=== PATIENT | male | born 1965 | race African-American/Black ===

== ENCOUNTER 2017-04-15 14:19 | Inpatient (IN) | payer OTHER ==
[2017-04-15 16:34] VITALS: BMI 33.0
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
[2017-04-15] MEDS ORDERED: LOPERAMIDE HCL 2 MG CAPSULE PO PRN (19:41)
[2017-04-15] MEDS ORDERED: guaiFENesin/D-METHORPHAN HB 10 ML UNIT-DOSE CUPS PO PRN (19:41)
[2017-04-15] MEDS ORDERED: MENTHOL/PHENOL 1 EACH UD MM PRN (19:41)
[2017-04-15] MEDS ORDERED: IBUPROFEN 400 MG TABLET (FP) PO PRN (19:41)
[2017-04-15] MEDS ORDERED: P-EPHED 60MG/TRIPROLIDI 2.5MG TABLET PO PRN (19:41)
[2017-04-15] MEDS ORDERED: ACETAMINOPHEN 325 MG TABLET (FP) PO PRN (19:41)
[2017-04-15] MEDS ORDERED: MAGNESIUM HYDROX 2400MG/30ML ORAL SUSPENSION 30 ML CUP PO PRN (19:41)
[2017-04-15] MEDS ORDERED: MAGNESIUM CITRATE 300 ML BOTTLE PO PRN (19:41)
[2017-04-15] MEDS ORDERED: TUBERCULIN PPD 5 TU/0.1ML VIAL ID ONE (20:54)
[2017-04-15 20:57] LABS: URINE APPEARANCE CLEAR; URINE BILIRUBIN NEGATIVE (NEGATIVE); URINE BLOOD NEGATIVE (NEGATIVE); URINE COLOR YELLOW; URINE GLUCOSE (UA) NEGATIVE (NEGATIVE); URINE KETONE NEGATIVE (NEGATIVE); URINE LEUK ESTERASE NEGATIVE (NEGATIVE); URINE NITRITE NEGATIVE (NEGATIVE); URINE PROTEIN NEGATIVE (NEGATIVE); URINE UROBILINOGEN NEGATIVE mg/dL (0.2-1.0)
[2017-04-15] MEDS: THIAMINE HCL 100 MG TABLET (FP) PO SCH (21:56)
[2017-04-15] MEDS: GABAPENTIN 400 MG CAPSULE (FP) PO SCH (21:57)
[2017-04-15] MEDS: diphenhydrAMINE HCL 50 MG CAPSULE PO PRN (21:57)
[2017-04-15] MEDS: NICOTINE 21 MG/24 HOURS TOPICAL PATCH TD SCH (21:58)
[2017-04-16] MEDS: GABAPENTIN 400 MG CAPSULE (FP) PO SCH ×3 (06:17→21:27)
[2017-04-16] MEDS: LISINOPRIL 10 MG TABLET (FP) PO SCH (09:38)
[2017-04-16] MEDS: PRENATAL VITAMINS W/ FOLIC ACID TABLET (FP) PO SCH (09:38)
[2017-04-16] MEDS: amLODIPine BESYLATE 10 MG TABLET (FP) PO SCH (09:38)
[2017-04-16] MEDS: NICOTINE 21 MG/24 HOURS TOPICAL PATCH TD SCH (09:38)
[2017-04-16 10:09] LABS: MCH 27.8 pg (25.7-33.7); MCHC 32.1 g/dl (32.0-35.9); MEAN CELL VOLUME 86.6 fl (80-96); MEAN PLT VOLUME 9.3 fl (7.5-11.1); PLATELET COUNT 257 K/MM3 (134-434); RDW 15.8 % (11.9-15.9); WHITE BLOOD COUNT 5.7 K/mm3 (4.0-10.0)
[2017-04-16 11:25] LABS: ALBUMIN 3.2 g/dl (3.4-5.0); ALK PHOS 104 U/L (45-117); ANION GAP 11 (8-16); BILIRUBIN,TOTAL 0.6 mg/dL (0.2-1.0); CALCIUM 8.9 mg/dL (8.5-10.1); CO2 24 mmol/L (21-32); CREATININE 1.1 mg/dL (0.7-1.3); GLUCOSE,RANDOM 107 mg/dL (74-106); SGOT/AST 19 U/L (15-37); SGPT/ALT 47 U/L (12-78); TOT PROT 7.1 g/dl (6.4-8.2)
[2017-04-16 11:49] LABS: HIV 1 & 2 AB NEGATIVE; HIV 1 AGp24 NEGATIVE
[2017-04-16 12:41] LABS: SICKLE CELL SCREEN NEGATIVE (NEGATIVE)
--- NOTE | 2017-04-16 14:22 | EKG ---
Test Reason : Blood Pressure : / mmHG Vent. Rate : 074 BPM Atrial Rate : 074 BPM P-R Int : 136 ms QRS Dur : 092 ms QT Int : 364 ms P-R-T Axes : 047 063 -15 degrees QTc Int : 404 ms NORMAL SINUS RHYTHM T WAVE ABNORMALITY, CONSIDER LATERAL ISCHEMIA ABNORMAL ECG NO PREVIOUS ECGS AVAILABLE Confirmed by KATALINA LYNCH, MARAL ([id number]) on 04/16/2017 2:22:06 PM Referred By: Burt Cheema Confirmed By:MARAL DARDEN MD
--- NOTE | 2017-04-16 14:40 | PN ---
Psychiatric Progress Note Vital Signs: Vital Signs Period Temp Pulse Resp BP Sys/Martines Pulse Ox Last 24 Hr 97.5 F-97.5 F 73-80 18-20 135-151/87-97 Date of Session: 04/16/17 Current Medications: Active Medications Generic Name Dose Route Start Last Admin Trade Name Freq PRN Reason Stop Dose Admin Acetaminophen 650 mg 04/15/17 19:41 Tylenol - PO Q4H PRN PAIN Al Hydroxide/Mg Hydroxide 30 ml 04/15/17 19:41 Mylanta Oral Suspension - PO Q6H PRN DYSPEPSIA Amlodipine Besylate 10 mg 04/16/17 10:00 04/16/17 09:38 Norvasc - PO 10 mg DAILY MIKE Administration Diphenhydramine HCl 50 mg 04/15/17 19:41 04/15/17 21:57 Benadryl - PO 50 mg HSMR1 PRN Administration INSOMNIA Eucalyptus/Menthol/Phenol/Sorbitol 1 each 04/15/17 19:41 Cepastat Lozenge - MM Q4H PRN SORE THROAT Gabapentin 800 mg 04/15/17 22:00 04/16/17 06:17 Neurontin - PO 800 mg TID MIKE Administration Guaifenesin 10 ml 04/15/17 19:41 Robitussin Dm - PO Q6H PRN COUGH Hydroxyzine Pamoate 50 mg 04/15/17 19:41 Vistaril - PO Q4H PRN AGITATION Ibuprofen 400 mg 04/15/17 19:41 Motrin - PO Q6H PRN SEVERE PAIN Lisinopril 10 mg 04/16/17 10:00 04/16/17 09:38 Prinivil PO 10 mg DAILY MIKE Administration Loperamide HCl 4 mg 04/15/17 19:41 Imodium - PO Q6H PRN DIARRHEA Magnesium Citrate 300 ml 04/15/17 19:41 Citroma - PO Q48H PRN CONSTIPATION Magnesium Hydroxide 30 ml 04/15/17 19:41 Milk Of Magnesia - PO DAILY PRN CONSTIPATION Nicotine 21 mg 04/15/17 19:45 04/16/17 09:38 Nicoderm Patch - TD 21 mg DAILY MIKE Administration Nicotine Polacrilex 2 mg 04/15/17 19:41 Nicorette Gum - BUC Q2H PRN NICOTINE REPLACEMENT RX Multivit/Folic Acid/Iron 1 tab 04/16/17 10:00 04/16/17 09:38 Vitamins ([facility]) - PO 1 tab DAILY MIKE Administration Pseudoephedrine/Triprolidine 1 combo 04/15/17 19:41 Actifed - PO TID PRN NASAL CONGESTION Thiamine HCl 100 mg 04/15/17 22:00 04/15/17 21:56 Vitamin B1 - PO 100 mg HS MIKE Administration
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
[2017-04-16] MEDS: SERTRALINE HCL 50 MG TABLET (FP) PO SCH (15:52)
[2017-04-16] MEDS: MAG HYDROX/AL HYDROX/SIMETH 30 ML UNIT-DOSE CUP PO PRN (20:26)
[2017-04-16] MEDS: THIAMINE HCL 100 MG TABLET (FP) PO SCH (21:27)
[2017-04-16] MEDS: SUVOREXANT 10 MG TABLET PO PRN (21:30)
[2017-04-17] MEDS: GABAPENTIN 400 MG CAPSULE (FP) PO SCH ×3 (06:21→21:14)
[2017-04-17] MEDS: hydrOXYzine PAMOATE 50 MG CAPSULE (FP) PO PRN (06:21)
[2017-04-17] MEDS: amLODIPine BESYLATE 10 MG TABLET (FP) PO SCH (09:52)
[2017-04-17] MEDS: LISINOPRIL 10 MG TABLET (FP) PO SCH (09:53)
[2017-04-17] MEDS: NICOTINE 21 MG/24 HOURS TOPICAL PATCH TD SCH (09:53)
[2017-04-17] MEDS: SERTRALINE HCL 50 MG TABLET (FP) PO SCH (09:53)
[2017-04-17] MEDS: PRENATAL VITAMINS W/ FOLIC ACID TABLET (FP) PO SCH (09:53)
[2017-04-17] MEDS: THIAMINE HCL 100 MG TABLET (FP) PO SCH (21:14)
[2017-04-17] MEDS: MAG HYDROX/AL HYDROX/SIMETH 30 ML UNIT-DOSE CUP PO PRN (21:15)
[2017-04-17] MEDS: SUVOREXANT 10 MG TABLET PO PRN (21:16)
[2017-04-18] MEDS: GABAPENTIN 400 MG CAPSULE (FP) PO SCH ×3 (06:36→21:03)
[2017-04-18] MEDS: hydrOXYzine PAMOATE 50 MG CAPSULE (FP) PO PRN (06:36)
[2017-04-18] MEDS: PRENATAL VITAMINS W/ FOLIC ACID TABLET (FP) PO SCH (09:45)
[2017-04-18] MEDS: amLODIPine BESYLATE 10 MG TABLET (FP) PO SCH (09:45)
[2017-04-18] MEDS: LISINOPRIL 10 MG TABLET (FP) PO SCH (09:45)
[2017-04-18] MEDS: SERTRALINE HCL 50 MG TABLET (FP) PO SCH (09:45)
[2017-04-18] MEDS: NICOTINE 21 MG/24 HOURS TOPICAL PATCH TD SCH (09:45)
[2017-04-18] MEDS: MAG HYDROX/AL HYDROX/SIMETH 30 ML UNIT-DOSE CUP PO PRN (14:12)
[2017-04-18] MEDS: THIAMINE HCL 100 MG TABLET (FP) PO SCH (21:02)
[2017-04-18] MEDS: SUVOREXANT 10 MG TABLET PO PRN (21:03)
[2017-04-19] MEDS: GABAPENTIN 400 MG CAPSULE (FP) PO SCH ×3 (06:05→21:30)
[2017-04-19] MEDS: hydrOXYzine PAMOATE 50 MG CAPSULE (FP) PO PRN (06:05)
[2017-04-19] MEDS: NICOTINE 21 MG/24 HOURS TOPICAL PATCH TD SCH (09:44)
[2017-04-19] MEDS: SERTRALINE HCL 50 MG TABLET (FP) PO SCH (09:44)
[2017-04-19] MEDS: amLODIPine BESYLATE 10 MG TABLET (FP) PO SCH (09:45)
[2017-04-19] MEDS: LISINOPRIL 10 MG TABLET (FP) PO SCH (09:45)
[2017-04-19] MEDS: PRENATAL VITAMINS W/ FOLIC ACID TABLET (FP) PO SCH (09:45)
[2017-04-19] MEDS: THIAMINE HCL 100 MG TABLET (FP) PO SCH (21:30)
[2017-04-19] MEDS: SUVOREXANT 10 MG TABLET PO PRN (21:31)
[2017-04-20] MEDS: GABAPENTIN 400 MG CAPSULE (FP) PO SCH ×3 (06:07→21:30)
[2017-04-20] MEDS: hydrOXYzine PAMOATE 50 MG CAPSULE (FP) PO PRN (06:08)
[2017-04-20] MEDS: PRENATAL VITAMINS W/ FOLIC ACID TABLET (FP) PO SCH (09:55)
[2017-04-20] MEDS: MAG HYDROX/AL HYDROX/SIMETH 30 ML UNIT-DOSE CUP PO PRN (09:55)
[2017-04-20] MEDS: SERTRALINE HCL 50 MG TABLET (FP) PO SCH (09:55)
[2017-04-20] MEDS: NICOTINE 21 MG/24 HOURS TOPICAL PATCH TD SCH (09:55)
[2017-04-20] MEDS: LISINOPRIL 10 MG TABLET (FP) PO SCH (09:55)
[2017-04-20] MEDS: amLODIPine BESYLATE 10 MG TABLET (FP) PO SCH (09:55)
[2017-04-20] MEDS: THIAMINE HCL 100 MG TABLET (FP) PO SCH (21:30)
[2017-04-20] MEDS: SUVOREXANT 10 MG TABLET PO PRN (21:31)
[2017-04-20] MEDS: diphenhydrAMINE HCL 50 MG CAPSULE PO PRN (21:31)
[2017-04-21] MEDS: GABAPENTIN 400 MG CAPSULE (FP) PO SCH ×3 (06:09→22:15)
[2017-04-21] MEDS: hydrOXYzine PAMOATE 50 MG CAPSULE (FP) PO PRN (06:10)
[2017-04-21] MEDS: amLODIPine BESYLATE 10 MG TABLET (FP) PO SCH (09:49)
[2017-04-21] MEDS: NICOTINE 21 MG/24 HOURS TOPICAL PATCH TD SCH (09:49)
[2017-04-21] MEDS: PRENATAL VITAMINS W/ FOLIC ACID TABLET (FP) PO SCH (09:49)
[2017-04-21] MEDS: NICOTINE POLACRILEX 2 MG GUM BUC PRN (09:50)
[2017-04-21] MEDS: SERTRALINE HCL 50 MG TABLET (FP) PO SCH (09:50)
[2017-04-21] MEDS: LISINOPRIL 10 MG TABLET (FP) PO SCH (09:50)
[2017-04-21] MEDS: MAG HYDROX/AL HYDROX/SIMETH 30 ML UNIT-DOSE CUP PO PRN (16:45)
[2017-04-21] MEDS: THIAMINE HCL 100 MG TABLET (FP) PO SCH (22:15)
[2017-04-21] MEDS: diphenhydrAMINE HCL 50 MG CAPSULE PO PRN (22:15)
[2017-04-21] MEDS: SUVOREXANT 10 MG TABLET PO PRN (22:17)
[2017-04-22] MEDS: hydrOXYzine PAMOATE 50 MG CAPSULE (FP) PO PRN (06:03)
[2017-04-22] MEDS: GABAPENTIN 400 MG CAPSULE (FP) PO SCH ×3 (06:03→21:32)
[2017-04-22] MEDS: PRENATAL VITAMINS W/ FOLIC ACID TABLET (FP) PO SCH (09:55)
[2017-04-22] MEDS: amLODIPine BESYLATE 10 MG TABLET (FP) PO SCH (09:55)
[2017-04-22] MEDS: SERTRALINE HCL 50 MG TABLET (FP) PO SCH (09:55)
[2017-04-22] MEDS: NICOTINE 21 MG/24 HOURS TOPICAL PATCH TD SCH (09:56)
[2017-04-22] MEDS: LISINOPRIL 10 MG TABLET (FP) PO SCH (09:56)
[2017-04-22] MEDS: MAG HYDROX/AL HYDROX/SIMETH 30 ML UNIT-DOSE CUP PO PRN (19:54)
[2017-04-22] MEDS: THIAMINE HCL 100 MG TABLET (FP) PO SCH (21:33)
[2017-04-22] MEDS: diphenhydrAMINE HCL 50 MG CAPSULE PO PRN (21:33)
[2017-04-23] MEDS: GABAPENTIN 400 MG CAPSULE (FP) PO SCH ×3 (06:07→21:26)
[2017-04-23] MEDS: hydrOXYzine PAMOATE 50 MG CAPSULE (FP) PO PRN (06:07)
[2017-04-23] MEDS: PRENATAL VITAMINS W/ FOLIC ACID TABLET (FP) PO SCH (09:53)
[2017-04-23] MEDS: SERTRALINE HCL 50 MG TABLET (FP) PO SCH (09:54)
[2017-04-23] MEDS: NICOTINE 21 MG/24 HOURS TOPICAL PATCH TD SCH (09:54)
[2017-04-23] MEDS: amLODIPine BESYLATE 10 MG TABLET (FP) PO SCH (09:54)
[2017-04-23] MEDS: LISINOPRIL 10 MG TABLET (FP) PO SCH (09:54)
[2017-04-23] MEDS: MAG HYDROX/AL HYDROX/SIMETH 30 ML UNIT-DOSE CUP PO PRN (20:02)
[2017-04-23] MEDS: NICOTINE POLACRILEX 2 MG GUM BUC PRN (20:03)
[2017-04-23] MEDS: THIAMINE HCL 100 MG TABLET (FP) PO SCH (21:26)
[2017-04-23] MEDS: diphenhydrAMINE HCL 50 MG CAPSULE PO PRN (21:28)
[2017-04-23] MEDS: SUVOREXANT 10 MG TABLET PO PRN (21:28)
[2017-04-24] MEDS: MAG HYDROX/AL HYDROX/SIMETH 30 ML UNIT-DOSE CUP PO PRN (02:54)
[2017-04-24] MEDS: GABAPENTIN 400 MG CAPSULE (FP) PO SCH ×3 (06:11→21:21)
[2017-04-24] MEDS: hydrOXYzine PAMOATE 50 MG CAPSULE (FP) PO PRN (06:11)
[2017-04-24] MEDS: SERTRALINE HCL 50 MG TABLET (FP) PO SCH (09:46)
[2017-04-24] MEDS: NICOTINE 21 MG/24 HOURS TOPICAL PATCH TD SCH (09:46)
[2017-04-24] MEDS: LISINOPRIL 10 MG TABLET (FP) PO SCH (09:46)
[2017-04-24] MEDS: amLODIPine BESYLATE 10 MG TABLET (FP) PO SCH (09:46)
[2017-04-24] MEDS: PRENATAL VITAMINS W/ FOLIC ACID TABLET (FP) PO SCH (09:46)
[2017-04-24] MEDS: NICOTINE POLACRILEX 2 MG GUM BUC PRN ×2 (09:48→13:30)
[2017-04-24] MEDS: SUVOREXANT 10 MG TABLET PO PRN (21:21)
[2017-04-24] MEDS: diphenhydrAMINE HCL 50 MG CAPSULE PO PRN (21:21)
[2017-04-24] MEDS: THIAMINE HCL 100 MG TABLET (FP) PO SCH (21:21)
[2017-04-25] MEDS: hydrOXYzine PAMOATE 50 MG CAPSULE (FP) PO PRN (06:18)
[2017-04-25] MEDS: GABAPENTIN 400 MG CAPSULE (FP) PO SCH ×3 (06:18→21:40)
[2017-04-25] MEDS: amLODIPine BESYLATE 10 MG TABLET (FP) PO SCH (09:36)
[2017-04-25] MEDS: NICOTINE 21 MG/24 HOURS TOPICAL PATCH TD SCH (09:36)
[2017-04-25] MEDS: PRENATAL VITAMINS W/ FOLIC ACID TABLET (FP) PO SCH (09:36)
[2017-04-25] MEDS: LISINOPRIL 10 MG TABLET (FP) PO SCH (09:36)
[2017-04-25] MEDS: SERTRALINE HCL 50 MG TABLET (FP) PO SCH (09:36)
[2017-04-25] MEDS: NICOTINE POLACRILEX 2 MG GUM BUC PRN ×2 (09:37→14:21)
[2017-04-25] MEDS: THIAMINE HCL 100 MG TABLET (FP) PO SCH (21:40)
[2017-04-25] MEDS: diphenhydrAMINE HCL 50 MG CAPSULE PO PRN (21:40)
[2017-04-25] MEDS: SUVOREXANT 10 MG TABLET PO PRN (21:41)
[2017-04-26] MEDS: GABAPENTIN 400 MG CAPSULE (FP) PO SCH ×3 (06:16→21:36)
[2017-04-26] MEDS: hydrOXYzine PAMOATE 50 MG CAPSULE (FP) PO PRN (06:16)
[2017-04-26] MEDS: NICOTINE POLACRILEX 2 MG GUM BUC PRN ×2 (08:53→14:42)
[2017-04-26] MEDS: NICOTINE 21 MG/24 HOURS TOPICAL PATCH TD SCH (09:48)
[2017-04-26] MEDS: PRENATAL VITAMINS W/ FOLIC ACID TABLET (FP) PO SCH (09:48)
[2017-04-26] MEDS: amLODIPine BESYLATE 10 MG TABLET (FP) PO SCH (09:48)
[2017-04-26] MEDS: SERTRALINE HCL 50 MG TABLET (FP) PO SCH (09:48)
[2017-04-26] MEDS: LISINOPRIL 10 MG TABLET (FP) PO SCH (09:48)
[2017-04-26] MEDS: SUVOREXANT 10 MG TABLET PO PRN (21:36)
[2017-04-26] MEDS: diphenhydrAMINE HCL 50 MG CAPSULE PO PRN (21:36)
[2017-04-26] MEDS: THIAMINE HCL 100 MG TABLET (FP) PO SCH (21:36)
[2017-04-27] MEDS: GABAPENTIN 400 MG CAPSULE (FP) PO SCH ×3 (06:13→21:48)
[2017-04-27] MEDS: hydrOXYzine PAMOATE 50 MG CAPSULE (FP) PO PRN (06:13)
[2017-04-27] MEDS: LISINOPRIL 10 MG TABLET (FP) PO SCH (09:43)
[2017-04-27] MEDS: PRENATAL VITAMINS W/ FOLIC ACID TABLET (FP) PO SCH (09:43)
[2017-04-27] MEDS: NICOTINE POLACRILEX 2 MG GUM BUC PRN ×2 (09:43→14:40)
[2017-04-27] MEDS: SERTRALINE HCL 50 MG TABLET (FP) PO SCH (09:43)
[2017-04-27] MEDS: NICOTINE 21 MG/24 HOURS TOPICAL PATCH TD SCH (09:43)
[2017-04-27] MEDS: amLODIPine BESYLATE 10 MG TABLET (FP) PO SCH (09:43)
[2017-04-27] MEDS: THIAMINE HCL 100 MG TABLET (FP) PO SCH (21:47)
[2017-04-27] MEDS: SUVOREXANT 10 MG TABLET PO PRN (21:48)
[2017-04-27] MEDS: diphenhydrAMINE HCL 50 MG CAPSULE PO PRN (21:48)
[2017-04-28] MEDS: GABAPENTIN 400 MG CAPSULE (FP) PO SCH ×3 (06:24→21:46)
[2017-04-28] MEDS: hydrOXYzine PAMOATE 50 MG CAPSULE (FP) PO PRN (06:24)
[2017-04-28] MEDS: SERTRALINE HCL 50 MG TABLET (FP) PO SCH (10:04)
[2017-04-28] MEDS: LISINOPRIL 10 MG TABLET (FP) PO SCH (10:04)
[2017-04-28] MEDS: amLODIPine BESYLATE 10 MG TABLET (FP) PO SCH (10:04)
[2017-04-28] MEDS: PRENATAL VITAMINS W/ FOLIC ACID TABLET (FP) PO SCH (10:04)
[2017-04-28] MEDS: NICOTINE 21 MG/24 HOURS TOPICAL PATCH TD SCH (10:04)
[2017-04-28] MEDS: NICOTINE POLACRILEX 2 MG GUM BUC PRN ×2 (10:06→14:27)
[2017-04-28] MEDS: THIAMINE HCL 100 MG TABLET (FP) PO SCH (21:45)
[2017-04-28] MEDS: diphenhydrAMINE HCL 50 MG CAPSULE PO PRN (21:45)
[2017-04-28] MEDS: SUVOREXANT 10 MG TABLET PO PRN (21:46)
[2017-04-29] MEDS: GABAPENTIN 400 MG CAPSULE (FP) PO SCH (06:20)
[2017-04-29 07:01] VITALS: BP 137/93; PULSE 73; TEMP 98.8
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
[2017-04-29] MEDS: LISINOPRIL 10 MG TABLET (FP) PO SCH (09:36)
[2017-04-29] MEDS: PRENATAL VITAMINS W/ FOLIC ACID TABLET (FP) PO SCH (09:36)
[2017-04-29] MEDS: SERTRALINE HCL 50 MG TABLET (FP) PO SCH (09:36)
[2017-04-29] MEDS: amLODIPine BESYLATE 10 MG TABLET (FP) PO SCH (09:36)
[2017-04-29] MEDS: NICOTINE 21 MG/24 HOURS TOPICAL PATCH TD SCH (09:36)
[2017-04-29] MEDS: NICOTINE POLACRILEX 2 MG GUM BUC PRN (09:39)
== END 2017-04-29 10:00 | disposition home or self-care (01) | DRG 772 ==
LOC: YASAS 14:19 → Y3W 18:02
PROVIDERS: ADMIT Psychiatry & Neurology Psychiatry; ATTEND Psychiatry & Neurology Psychiatry
PROC: HZ42ZZZ Group Counseling for Substance Abuse Treatment, Cognitive-Behavioral (ICD-10-PCS; principal; 2017-04-15)
DX: F11.20 Opioid dependence, uncomplicated (principal); F10.20 Alcohol dependence, uncomplicated; F43.10 Post-traumatic stress disorder, unspecified; F33.2 Major depressive disorder, recurrent severe without psychotic features; G62.9 Polyneuropathy, unspecified; Z87.828 Personal history of other (healed) physical injury and trauma; Z89.512 Acquired absence of left leg below knee; R26.89 Other abnormalities of gait and mobility; Z99.89 Dependence on other enabling machines and devices; Z59.0 Homelessness
CPT/HCPCS: 36415; 80053; 81003; 85027; 85660; 86593; 87389; 93005; 93010